=== PATIENT | male | born 1950 | race African-American/Black ===

== ENCOUNTER → 2020-06-28 13:52 | Outpatient (CLI) | payer MEDICARE, SELFPAY ==
--- NOTE | ~2020-06-28 | CT_ITS ---
EXAMINATION: CT lumbar spine wo con DATE: 06/28/2020 14:23 INDICATION: Lumbosacral radiculopathy. Right leg weakness. TECHNIQUE: Computed tomography (CT) of the lumbar spine was performed without intravenous contrast. A utomated exposure control and iterative reconstruction technique were employed. The dose-length produ ct was 930.57 mGy-cm. COMPARISON: CT lumbar spine 09/19/2019 FINDINGS: There is 8 degrees levocurvature of lumbar spine. There is 3 mm retrolisthesis of L4 on L5. Vertebral body heights are normal. There is severely decreased disc height from L2-L3 through L4-L5. Osseous central spinal canal is developmentally small from L1 to L4. Epidural electrodes are noted w ith tips in thoracic spine. The following disc levels are specifically discussed: L1-L2: The disc is bulging. There is mild bilateral facet joint osteoarthritis. There is mild bilater al neural foraminal stenosis. There is mild central canal stenosis. L2-L3: The disc is bulging. There is severe bilateral facet joint osteoarthritis. There is moderate b ilateral neural foraminal stenosis. There is moderate central canal stenosis. L3-L4: The disc is bulging. There is mild bilateral facet joint osteoarthritis. There is moderate dakota ateral neural foraminal stenosis. There is severe central canal stenosis. L4-L5: The disc is bulging. There is moderate and severe left facet joint osteoarthritis. There is mo derate bilateral neural foraminal stenosis. There is moderate central canal stenosis. L5-S1: The disc is bulging. There is severe bilateral facet joint osteoarthritis. There is moderate b ilateral neural foraminal stenosis. There is mild central canal stenosis. IMPRESSION: 1. Severe lumbar spondylosis, stable from 09/19/2019. Reviewed, dictated and finalized at location B.
== END ==
PROVIDERS: PCP Family Medicine; Visit Provider Nurse Practitioner Adult Health
DX: M54.17 Radiculopathy, lumbosacral region (principal); M47.816 Spondylosis without myelopathy or radiculopathy, lumbar region
CPT/HCPCS: 72131

== ENCOUNTER 2020-11-05 10:49 | Outpatient (NON) | payer MEDICARE, SELFPAY ==
[2020-11-05 22:00] LABS: SARS-CoV-2 RNA PCR Negative
== END 2020-11-05 10:50 ==
PROVIDERS: Visit Provider Physician Assistant
DX: R68.89 Other general symptoms and signs (principal); Z20.828 Contact with and (suspected) exposure to other viral communicable diseases
CPT/HCPCS: 87635; C9803; U0003

== ENCOUNTER → 2021-01-05 06:46 | Outpatient (CLI) | payer MEDICARE, SELFPAY ==
[2021-01-05 19:10] LABS: SARS-CoV-2 RNA PCR Negative
== END ==
PROVIDERS: Visit Provider Internal Medicine Cardiovascular Disease
DX: Z01.812 Encounter for preprocedural laboratory examination (principal); Z20.822 Contact with and (suspected) exposure to COVID-19
CPT/HCPCS: C9803; U0003; U0005

== ENCOUNTER 2021-01-08 00:28 | Day surgery (SDC) | payer MEDICARE, SELFPAY ==
[2021-01-07 14:20] VITALS: O2SAT 97
[2021-01-07 17:01] VITALS: BMI 42.3
[2021-01-08] VITALS (21 sets, daily range): BP systolic 115–158; BP diastolic 62–98; PULSE 53–93; RESP 14–20; TEMP 36.2–36.5; O2SAT 96–100; BMI 41.5
[2021-01-08 08:29] LABS: Basophils Percent Auto 0.3 % (0.2-1.2); Hematocrit 44.2 % (42.0-52.0); Hemoglobin 14.4 g/dL (14.0-18.0); Immature Granulocyte Absolute 0.04 K/mm3 (0.00-0.031); Immature Granulocyte Percent A 0.5 % (0-0.5); Lymphocytes Absolute Auto 1.62 K/mm3 (0.9-3.2); Lymphocytes Percent Auto 20.6 % (18.3-44.2); Mean Corpuscular HGB Conc 32.6 g/dl (32-36); Mean Corpuscular Hemoglobin 29.6 pg (26-34); Mean Corpuscular Volume 90.9 fl (80-100); Mean Platelet Volume 10.7 fl (7.4-10.4); Monocytes Absolute Auto 0.1 K/mm3 (0.1-0.6); Monocytes Percent Auto 1.4 % (2.6-8.5); Neutrophils Absolute Auto 6.1 K/mm3 (1.3-6.7); Neutrophils Percent Auto 77.2 % (45.5-73.1); Platelet Count Result 339 k/mm3 (150-375); Red Blood Count 4.86 M/mm3 (4.6-6.20); Red Cell Distribution Width 13.8 % (11.5-14.5); White Blood Count 7.9 K/mm3 (4.5-10.0)
[2021-01-08 08:39] LABS: INR 0.9; Prothrombin Time 13.1 Seconds (11.1-14.7)
[2021-01-08 08:50] LABS: Alanine Aminotransferase 35 U/L (4-50); Albumin Level 4.4 g/dL (3.5-5.1); Alkaline Phosphatase 57 U/L (38-126); Anion Gap 10 mmol/L (8-16); Aspartate Amino Transferase 33 U/L (17-59); Bilirubin,Total 0.6 mg/dL (0.2-1.3); Blood Urea Nitrogen 29 mg/dL (9-20); Calcium 9.2 mg/dL (8.4-10.2); Carbon Dioxide 27 mmol/L (22-30); Chloride 105 mmol/L (98-107); Estimated CRCL calculation 90 ml/min; Estimated Glomerular Filt Rate > 60; Glucose 150 mg/dL (75-110); Potassium 3.9 mmol/L (3.4-5.0); Sodium 142 mmol/L (137-145)
[2021-01-08] MEDS: diphenhydrAMINE HCl CAP 25 MG CAPSULE 50 MG PO (12:48)
--- NOTE | 2021-01-08 13:23 | WPDMODSED ---
Moderate Sedation Note-Pt Data Patient Data Allergies Allergy/AdvReac Type Severity Reaction Status Date / Time Contrast Media Allergy Unknown HIVES AND Uncoded 01/07/21 16:58 ITCHING Home Medications Medication Instructions Recorded Confirmed Type aspirin 81 mg tablet,delayed 81 mg PO DAILY 08/01/20 01/07/21 History release furosemide 40 mg tablet 40 mg PO QAM 08/01/20 01/07/21 History potassium chloride 20 mEq 20 meq PO DAILY 08/01/20 01/07/21 History tablet,extended release tadalafil 20 mg tablet 20 mg PO DAILY PRN #30 tablet 08/01/20 01/07/21 Rx lisinopril 20 2 tablet PO DAILY #180 tablet 09/04/20 01/07/21 Rx mg-hydrochlorothiazide 25 mg tablet metoprolol succinate 25 mg 25 mg PO DAILY #90 tablet 12/11/20 01/07/21 Rx tablet,extended release 24 hr rosuvastatin [Crestor] 20 mg PO DAILY 01/07/21 01/07/21 History Current Medications: Active Medications Sodium Chloride (Normal Saline Iv) 500 mls @ 100 mls/hr IV CONT .Q5H FOZIA Sedation/Anesthesia: No previous sedation/anesthesia problems (including family history). [facility] Past Medical History Medical History (Updated 10/22/20 @ 12:10 by Mathieu Woo PA-C) 70 percent neuromuscular blockade measured by train of four peripheral nerve stimulation monitoring Hypertension Surgical History Surgical History History of arthroscopic knee surgery History of total hip arthroplasty Family History Family History Father Family history of malignant neoplasm Mother Hypertension Sibling Hypertension Grandparent Malignant neoplasm of prostate Sibling Malignant neoplasm of prostate Social History Social History Smoking status: Former smoker Tobacco type: e-cigarettes/vaping Smokeless tobacco user: other Second hand tobacco smoke exposure: No Smoking end date: 04/16/19 Additional smoking assessment comments: Pt uses e-cig daily Alcohol intake: current Drinks per week: 1 Substance use: never Substance use type: other Other substance usage details: CBD oil BID Living arrangements: with friend(s) Gender identity (if verbalized by the patient): Male Spiritual care concerns: Yes Agree to blood products: Yes Mod Sed Physical Exam Physical Exam Pre Procedural Exam: Normal: Airway Hours since solid foods: 12 Hours since liquid intake: 12 Internal Medicine - PN: Obj Da Vital Signs Vital Signs: Vital Signs - 24 hr 01/08/21 08:29 Temperature 36.2 C L Pulse Rate 93 Respiratory Rate 20 Blood Pressure 158/80 H Pulse Oximetry 97 Meds/Results Medications: Active Medications Generic Name Dose Route Start Last Admin Trade Name Freq PRN Reason Stop Dose Admin Sodium Chloride 500 mls @ 100 mls/hr 01/08/21 08:15 Normal Saline Iv IV CONT .Q5H FOZIA Labs CBC & Chem 7: 01/08/21 08:23 01/08/21 08:23 Labs: Laboratory Results - last 24 hr 01/08/21 01/08/21 01/08/21 08:23 08:23 08:23 WBC 7.9 RBC 4.86 Hgb 14.4 Hct 44.2 MCV 90.9 MCH 29.6 MCHC 32.6 RDW 13.8 Plt Count 339 MPV 10.7 H Immature Gran % (Auto) 0.5 Neut % (Auto) 77.2 H Lymph % (Auto) 20.6 [place] % (Auto) 1.4 L Eos % (Auto) 0.0 Baso % (Auto) 0.3 Lymph # (Auto) 1.62 [place] # (Auto) 0.1 Eos # (Auto) 0.0 Baso # (Auto) 0.0 Abs Immat Gran (auto) 0.04 H Absolute Neuts (auto) 6.1 Absolute Nucleated RBC 0.0 Nucleated RBC % 0.0 PT 13.1 INR 0.9 Sodium 142 Potassium 3.9 Chloride 105 Carbon Dioxide 27 Anion Gap 10 BUN 29 H Creatinine 0.90 Estim Creat Clear Calc 90 Estimated GFR > 60 Glucose 150 H Calcium 9.2 Total Bilirubin 0.6 AST 33 ALT 35 Alkaline Phosphatase 57 Total Protein 8.0 Albumin 4.4 ASA C
--- NOTE | 2021-01-08 13:24 | WPDHPUPDATE1 ---
History and Physical Update Update Date/Time: 01/08/21 13:24 History and Physical has been reviewed, including an updated exam of the patient. There are NO changes in the patient's condition. Risks, benefits, and alternatives have been discussed and questions answered. Patient agrees to proceed with procedure.
--- NOTE | 2021-01-08 14:03 | WPDCARDPROC ---
Cardiac Cath Procedure Note Date of procedure:: 01/08/21 Performing physician:: Noman Garg MD Procedure Procedure note:: RIGHT AND LEFT HEART CATHETERIZATION AND CORONARY ANGIOGRAM REPORT DATE OF PROCEDURE: 01/08/2021 INDICATION FOR PROCEDURE: Chest pain and worsening shortness of breath BRIEF CLINICAL HISTORY: 70-year-old male with hypertension, CHF with preserved ejection fraction based on previous echo, pulmonary hypertension, PVCs, morbid obesity. Patient has been experiencing worsening shortness of breath and episodes of chest discomfort. His previous MPI from 06/21/2019 reportedly showed mild fixed defect in the basal anterior, mid anterior and apical anterior segments; normal LVEF. Due to patient's symptoms of chest discomfort and worsening shortness of breath, right heart catheterization and coronary angiogram was recommended. Benefits and risks of the procedure were discussed with the patient in depth, and informed consent was obtained prior to the procedure. Risks of the procedure include but are not limited to vascular complications including groin hematoma, retroperitoneal bleed, vessel perforation; periprocedural GA, cardiac arrhythmias, stroke, contrast induced nephropathy, cardiac arrhythmias, pulmonary hemorrhage and . After discussing all the benefits, risks and alternatives, patient was willing to proceed with the procedure. PROCEDURES PERFORMED: 1. Left heart catheterization- Selective left and right coronary angiogram; left ventriculogram and hemodynamic assessment 2. Right heart catheterization with hemodynamic assessment 3. Selective right common femoral angiogram and deployment of Angio-Seal hemostatic device 4. Moderate sedation-CPT code 89161 MODERATE SEDATION: Midazolam 2 mg; fentanyl 50 mcg; Start time 1328 , Stop time 1402 ; Total ypax-al-cyst time 34 minutes; Belinda Fernandez RN was trained observer for moderate sedation. ACCESS SITE: Right common femoral artery and vein PROCEDURE NOTE: After obtaining informed consent, patient was brought to catheterization lab and prepped and draped in a usual sterile manner. After local anesthesia with lidocaine, right common femoral artery access was taken with micropuncture needle followed by insertion of a 5 [place] sheath. Right common femoral venous access was taken with micropuncture needle followed by insertion of a 7 [place] sheath. Right heart catheterization was performed using C [place] catheter. Pressures were measured in the right atrium, right ventricle, pulmonary artery, pulmonary capillary. O2 saturations were taken from the femoral artery, right atrium, right ventricle, pulmonary artery. Cardiac output was measured using Jayden's method. After completion of right heart catheterization, attention was shifted to the left heart catheterization. Selective left and right coronary angiogram was performed using 5 [place] JL4 and JR4 catheters respectively. Orthogonal views were taken. Next, a 5 [place] pigtail catheter was advanced in the LV cavity and was flushed with normal saline. LV pressure measurement was performed. After this, left ventriculogram was performed. The catheter was flushed again, and gradient across the aortic valve was measured on the pullback of the catheter. Manual pressure will be used for local hemostasis of right femoral and venous access site. Patient tolerated procedure well without any immediate procedure related complications. FINDINGS: LEFT HEART CATHETERIZATION: LEFT MAIN CORONARY: the left main coronary artery is the medium caliber vessel with mild narrowing in the distal segment. The vessel trifurcates into LAD, ramus intermedius and left circumflex branches. The LAD and left circumflex branches arise at almost 90 degree angles from the left main coronary artery. LEFT ANTERIOR DESCENDING ARTERY: The LAD is a medium caliber vessel in the proximal segment; very tortuous in the mid and distal segments, and tapers dis
--- NOTE | 2021-01-08 17:14 | SUR.PHASEII ---
Right groin arterial and venous site without any signs of bleeding or hematoma. Drsg dry and intact to site. HOB levated to 30 degrees. Tolerated regular diet without nausea or vomiting. IVF infusing at 125ml/hr. Post cardiac cath instructions reviewed with patient and with stated understanding - reinforced information as needed. Voided per urinal.
== END 2021-01-08 22:30 | disposition home or self-care (01) ==
PROVIDERS: Visit Provider Internal Medicine Cardiovascular Disease
PROC: 4A023N8 Measurement of Cardiac Sampling and Pressure, Bilateral, Percutaneous Approach (ICD-10-PCS; CPT 93453; principal; 2021-01-08 10:00)
DX: I25.10 Atherosclerotic heart disease of native coronary artery without angina pectoris (principal); R07.9 Chest pain, unspecified; R06.02 Shortness of breath; I11.0 Hypertensive heart disease with heart failure; I50.9 Heart failure, unspecified; I27.20 Pulmonary hypertension, unspecified; I49.3 Ventricular premature depolarization; R94.39 Abnormal result of other cardiovascular function study; Z79.82 Long term (current) use of aspirin; F17.290 Nicotine dependence, other tobacco product, uncomplicated; E66.01 Morbid (severe) obesity due to excess calories; Z68.41 Body mass index [BMI] 40.0-44.9, adult
CPT/HCPCS: 36415; 80053; 85025; 85610; 93460; A9270; C1769; C1887; C1894; C9803; J0583; J1644; J2250; J3010; J7030; J7040; U0003; U0005

== ENCOUNTER 2021-02-06 20:44 | Emergency (ER) | payer MEDICARE, SELFPAY ==
--- NOTE | ~2021-02-06 | XR_ITS ---
EXAMINATION: XR chest 1V portable EXAM DATE: 02/06/2021 22:02 INDICATION: Shortness of breath. COVID shot recently. Triple bypass surgery. Hypertension. TECHNIQUE: Portable AP frontal chest x-ray was obtained. Comparison is made to prior examination from 09/22/2019. FINDINGS: There is cardiomegaly. There is small left pleural effusion. There is left basilar linear a telectasis. Can't exclude superimposed left basilar pneumonia. Right lung is clear. No pneumothorax. Sternotomy wires and spine stimulator leads. IMPRESSION: 1. Cardiomegaly. 2. Small to moderate left pleural effusion. Left basilar subsegmental atelectasis. 3. Can't exclude superimposed retrocardiac pneumonia. Reviewed, dictated and finalized at location G. IMPRESSION: 1. Cardiomegaly. 2. Small to moderate left pleural effusion. Left basilar subsegmental atelecta sis. 3. Can't exclude superimposed retrocardiac pneumonia.
[2021-02-06 20:47] VITALS: BP 204/108; PULSE 84; RESP 22; TEMP 36.1; O2SAT 97
--- NOTE | 2021-02-06 20:55 | ECG_ITS ---
Measurements Intervals [place] Rate: 79 P: 61 [place]: 158 QRS: 44 QRSD: 110 T: 123 QT: 374 QTc: 430 Interpretive Statements SINUS RHYTHM WITH SINUS ARRHYTHMIA VENTRICULAR PREMATURE COMPLEXES BORDERLINE ST-T WAVE ABNORMALITY- INF/LAT LEADS BASELINE WANDER- I, II, III, AVL, AVF, V3-V6 BORDERLINE ECG Electronically Signed On 02-07-2021 7:32:04 CDT by Omer Dubose D.O.
[2021-02-06 21:09] LABS: Basophils Absolute Auto 0.1 K/mm3 (0.0-0.1); Basophils Percent Auto 0.8 % (0.2-1.2); Eosinophils Absolute Auto 0.2 K/mm3 (0-0.3); Eosinophils Percent Auto 2.3 % (0-4.4); Hematocrit 35.3 % (42.0-52.0); Hemoglobin 11.1 g/dL (14.0-18.0); Immature Granulocyte Absolute 0.04 K/mm3 (0.00-0.031); Immature Granulocyte Percent A 0.5 % (0-0.5); Lymphocytes Absolute Auto 2.57 K/mm3 (0.9-3.2); Lymphocytes Percent Auto 29.3 % (18.3-44.2); Mean Corpuscular HGB Conc 31.4 g/dl (32-36); Mean Corpuscular Hemoglobin 28.6 pg (26-34); Mean Platelet Volume 10.1 fl (7.4-10.4); Monocytes Absolute Auto 0.7 K/mm3 (0.1-0.6); Monocytes Percent Auto 8.3 % (2.6-8.5); Neutrophils Absolute Auto 5.2 K/mm3 (1.3-6.7); Neutrophils Percent Auto 58.8 % (45.5-73.1); Platelet Count Result 482 k/mm3 (150-375); Red Blood Count 3.88 M/mm3 (4.6-6.20); Red Cell Distribution Width 14.9 % (11.5-14.5); White Blood Count 8.8 K/mm3 (4.5-10.0)
[2021-02-06 21:46] LABS: Anion Gap 8 mmol/L (8-16); Blood Urea Nitrogen 17 mg/dL (9-20); Calcium 8.9 mg/dL (8.4-10.2); Carbon Dioxide 25 mmol/L (22-30); Chloride 108 mmol/L (98-107); Estimated CRCL calculation 89 ml/min; Estimated Glomerular Filt Rate > 60; Glucose 124 mg/dL (75-110); Potassium 3.7 mmol/L (3.4-5.0); Sodium 141 mmol/L (137-145)
--- NOTE | 2021-02-06 21:58 | ED.GENADULT ---
HPI - General Adult General Chief complaint: Dizziness Stated complaint: dizziness, sob, 2nd covid shot today Time Seen by Provider: 02/06/21 21:29 History of Present Illness HPI narrative: Patient is a 70-year-old gentleman who presents to the emergency department with chief complaint of shortness of breath. The patient reports that he recently had a bypass done at [facility] and has been doing well with that. Patient states his wounds are healing nicely and is still followed by home health. The patient reported that today he got his second Covid vaccine at approximately 2 PM and this evening started having some feelings of shortness of breath and feeling generalized weakness Related Data Home Medications Medication Instructions Recorded Confirmed aspirin 81 mg tablet,delayed 81 mg PO DAILY 08/01/20 01/07/21 release furosemide 40 mg tablet 40 mg PO QAM 08/01/20 01/07/21 potassium chloride 20 mEq 20 meq PO DAILY 08/01/20 01/07/21 tablet,extended release rosuvastatin [Crestor] 20 mg PO DAILY 01/07/21 01/07/21 Allergies Allergy/AdvReac Type Severity Reaction Status Date / Time Contrast Media Allergy Unknown HIVES AND Uncoded 02/06/21 20:52 ITCHING Review of Systems Review of Systems: Narrative: A 10 system review of systems was completed on the patient and is negative except for what is stated in the HPI. Nursing and ancillary documentation was reviewed. [facility] Past Medical History Medical History (Updated 02/06/21 @ 23:55 by Jan Coy MD) 70 percent neuromuscular blockade measured by train of four peripheral nerve stimulation monitoring Hypertension Surgical History Surgical History History of arthroscopic knee surgery History of total hip arthroplasty Family History Family History Father Family history of malignant neoplasm Mother Hypertension Sibling Hypertension Grandparent Malignant neoplasm of prostate Sibling Malignant neoplasm of prostate Social History Social History Smoking status: Former smoker Tobacco type: e-cigarettes/vaping Smokeless tobacco user: other Second hand tobacco smoke exposure: No Smoking end date: 04/16/19 Additional smoking assessment comments: Pt uses e-cig daily Alcohol intake: current Drinks per week: 1 Substance use: never Substance use type: other Other substance usage details: CBD oil BID Gender identity (if verbalized by the patient): Male Sexual Orientation (if Verbalized by the Patient): Straight or Heterosexual Spiritual care concerns: Yes Agree to blood products: Yes Exam Narrative: Exam Narrative: GENERAL: Well-appearing, well-nourished, and in no acute distress. HEAD: Normocephalic, atraumatic. EYES: PERRLA and EOMI. ENT: Nares clear, no rhinorrhea or epistaxis. Mucous membranes moist. NECK: Supple. CHEST: Clear to auscultation. No respiratory distress. HEART: Regular rate and rhythm. No murmur heard. Normal peripheral pulses. ABDOMEN: Soft, nontender, nondistended, normal active bowel sounds. EXTREMITIES: Normal range of motion. No edema. SKIN: Warm, dry, no rash. NEURO: No focal deficits. Alert and oriented x3. PSYCH: Normal mood and affect. Course Vital Signs Vital signs: Vital Signs Temperature 36.1 C L 02/06/21 20:47 Pulse Rate 84 02/06/21 20:47 Respiratory Rate 22 H 02/06/21 20:47 Blood Pressure 204/108 H 02/06/21 20:47 Pulse Oximetry 97 02/06/21 20:47 Temperature 36.1 C L 02/06/21 20:47 Pulse Rate 84 02/06/21 20:47 Respiratory Rate 22 H 02/06/21 20:47 Blood Pressure 204/108 H 02/06/21 20:47 Pulse Oximetry 97 02/06/21 20:47 Medical Decision Making Vital Signs Vital Signs: Vital Signs Temperature 36.1 C L 02/06/21 20:47 Pulse Rate 84
[2021-02-06 22:17] LABS: NT Pro B Type Natriuretic Pept 525 PG/ML (5-100); Troponin I 0.019 ng/mL (0.000-0.034)
[2021-02-07 00:14] VITALS: BP 158/92; PULSE 71; RESP 20; TEMP 36.3; O2SAT 97
== END 2021-02-07 00:14 | disposition home or self-care (01) ==
PROVIDERS: Emergency Medicine; Emergency Provider Emergency Medicine
DX: R06.00 Dyspnea, unspecified (principal); R53.1 Weakness; I10 Essential (primary) hypertension; Z96.649 Presence of unspecified artificial hip joint; F17.290 Nicotine dependence, other tobacco product, uncomplicated; I49.3 Ventricular premature depolarization; R94.31 Abnormal electrocardiogram [ECG] [EKG]
CPT/HCPCS: 36415; 71045; 80048; 83880; 84484; 85025; 93005; 99284

== ENCOUNTER 2021-03-21 09:42 | Outpatient (CLI) | payer MEDICARE, SELFPAY ==
--- NOTE | ~2021-03-21 | XR_ITS ---
EXAMINATION: XR foot LT min 3V EXAM DATE: 03/21/2021 10:05 INDICATION: No known recent injury provided at this time. Pain of the left foot. TECHNIQUE: Left foot dorsoplantar, lateral and oblique projections obtained and reviewed. There is n o prior study for comparison. FINDINGS: Left metatarsal bones unremarkable. There are no acute fractures or dislocations identifi ed. There is no subcutaneous gas. There is soft tissue swelling over the foot and ankle. There are no radiopaque foreign bodies. There is mild polyarticular primary osteoarthritis. Small inferior ca lcaneal spur. Possible exostosis dorsally of the 1st cuneiform. IMPRESSION: 1. Left foot exam without acute osseous findings. 2. Possible fractures of exostosis dorsally. 3. Diffuse soft tissue swelling. Reviewed, dictated and finalized at location B.
== END 2021-03-21 09:43 | disposition home or self-care (01) ==
PROVIDERS: PCP Physician Assistant; Visit Provider Physician Assistant
DX: M25.474 Effusion, right foot (principal); M79.672 Pain in left foot
CPT/HCPCS: 73630

== ENCOUNTER 2021-04-01 12:54 | Outpatient (CLI) | payer MEDICARE, SELFPAY ==
--- NOTE | ~2021-04-01 | US_ITS ---
EXAMINATION: US arterial ankle brachial ind EXAM DATE: 04/01/2021 13:55 INDICATION: M79.672 - Pain in left foot left foot pain . TECHNIQUE: Segmental pressures and plethysmographic and Doppler waveforms of the brachial and lower e xtremity arteries were obtained. There is no prior study for comparison. FINDINGS: Right and left brachial artery pressures of 142 mm Hg and 127 mm Hg, respectively, are concordant (no rmal difference <= 30 mmHg). RIGHT LEG: The ankle-brachial index (ANDREZ) is 0.99 (normal >= 0.9-1). The great toe-brachial index (TBI) is 0.08 (normal >= 0.65). The lower extremity ratios, segmental pressure gradients as follows; Dorsalis pedis: 0.99 (140 mmHg). Posterior tibial: 0.88 (125 mmHg). (Normal gradients <= 20-30 mmHg between adjacent levels on the same leg or the same levels on the two legs). Arterial waveforms are monophasic. LEFT LEG: The ankle-brachial index (ANDREZ) is 0.94 (normal >= 0.9-1). The great toe-brachial index (TBI) is 0.38 (normal >= 0.65). The lower extremity ratios, segmental pressure gradients as follows; Dorsalis pedis: 0.94 (133 mmHg). Posterior tibial: 0.92 (131 mmHg). (Normal gradients <= 20-30 mmHg between adjacent levels on the same leg or the same levels on the two legs). Arterial waveforms are monophasic. IMPRESSION: 1. Right ankle-brachial index 0.99, normal. 2. Left ankle-brachial index 0.94, normal. 3. Severely decreased right TBI, moderately decreased left. Reviewed, dictated and finalized at location A.
--- NOTE | ~2021-04-01 | US_ITS ---
EXAMINATION: US venous doppler [facility] EXAM DATE: 04/01/2021 13:55 INDICATION: M79.672 - Pain in left foot left foot pain. TECHNIQUE: Multiple grayscale, color flow and Doppler images of the left lower extremity deep venous system were obtained and reviewed. There is no prior study for comparison. FINDINGS: The left common femoral, femoral and profunda veins demonstrate normal color flow, respirat ory variation, augmentation and compressibility. Compressibility, color flow confirmed within the le ft popliteal, posterior tibial, peroneal, and greater saphenous veins. IMPRESSION: 1. No left lower extremity deep venous thrombosis. Reviewed, dictated and finalized at location A.
== END 2021-04-01 12:55 | disposition home or self-care (01) ==
PROVIDERS: PCP Physician Assistant; Visit Provider Physician Assistant
DX: R09.89 Other specified symptoms and signs involving the circulatory and respiratory systems (principal); M79.672 Pain in left foot
CPT/HCPCS: 93922; 93971

== ENCOUNTER 2021-04-29 07:15 | Outpatient (CLI) | payer MEDICARE, SELFPAY ==
--- NOTE | 2021-05-13 11:30 | WPDHOMESLEEP ---
Sleep Study - Home Unattended Date of Study: 04/29/21 Ordering Provider: Noman Garg MD Interpreting Provider: Bonny Beebe MD Home Sleep Study Type: Apnea Link Air Height: 1.75 m Weight: 122.47 kg Body Mass Index: 39.9 Neck Circumference (inches): 17.5 [place]: 6 Reason for Sleep Study hypersomnia Sleep History Deandre Lebron is a 71-year-old male referred by Dr. Garg, cardologist, for evaluation of his sleep. He wakes several times at night to urinate. He rarely awakens from sleep feeling short of breath. He does not awaken at night with heartburn, belching or coughing. He constantly snores and this is constantly loud enough that others complain about it. He occasionally has trouble sleeping with a cold. He rarely wakes up gasping for breath at night. He rarely has breathing problems at night observed by others. He rarely sweats excessively at night. He does not notice his heart pounding or beating irregularly night. He occasionally falls asleep during the day, occasionally falls asleep involuntarily but says that he never falls asleep while driving. He does not have loss of muscle tone was strong emotion. He does not have daytime difficulties due to excessive sleepiness. He does not feel paralyzed on waking or falling asleep. He does not have vivid dreamlike scenes upon awakening or falling asleep. He does not feel afraid to go to sleep. He rarely has nightmares and rarely remembers his dreams. He does not have racing thoughts. He does not feel sad depressed or anxious. He denies muscular tension, does not notice parts of his body jerking. He does not kick at night. He does not have crawling and aching feelings in his legs. He does not have any kind of leg pain at night. He does not have morning jaw pain. He does not grind his teeth during sleep. He frequently is bothered by pain during the day. He has never awakened by pain during the night. He rarely wakes up feeling stiff, rarely wakes with sore achy muscles, and rarely wakes with pain in the neck and spine. He has sexual difficulties. Normal bedtime is 11:00 p.m. falling asleep within 15-20 minutes. He typically wakes 2-3 times at night to use the bathroom. He stays awake for averaged 30 minutes. He wakes the morning by 6:00 a.m.. On the weekends he goes to bed at 11:00 p.m. but wakes at 8:00 a.m.. He does take naps in the afternoon or evening. A short nap is not refreshing. He feels better in the afternoon compared other times a day. Habits: Quit tobacco 4 years ago. Caffeine 2 glasses a day. Alcohol twice a week. No recreational drugs. [facility] Past Medical History Medical History (Updated 05/13/21 @ 11:39 by Bonny Beebe MD) Absence of pulse of left foot CAD in [place] artery Chronic toe pain, left foot Hypertension Lumbosacral spondylosis with radiculopathy Mixed hyperlipidemia Surgical History Surgical History History of arthroscopic knee surgery History of total hip arthroplasty S/P CABG x 3 Family History Family History Father Family history of malignant neoplasm Mother Hypertension Diabetes mellitus Sibling Hypertension Grandparent Malignant neoplasm of prostate Sibling Malignant neoplasm of prostate Social History Social History Smoking status: Former smoker Tobacco type: e-cigarettes/vaping Smokeless tobacco user: other Second hand tobacco smoke exposure: No Smoking end date: 04/16/19 Additional smoking assessment comments: Pt uses e-cig daily Alcohol intake: current Drinks per week: 1 Substance use: never Substance use type: other Other substance usage details: CBD oil BID Gender identity (if verbalized by the patient): Male Spiritual care concerns: Yes Agree to blood products: Yes Medications Home Medications
[2021-05-13 11:43] VITALS: BMI 39.9
== END 2021-04-30 09:22 | disposition home or self-care (01) ==
LOC: ANHCSM 07:15
PROVIDERS: PCP Physician Assistant; Visit Provider Internal Medicine Cardiovascular Disease
DX: G47.33 Obstructive sleep apnea (adult) (pediatric) (principal); G47.10 Hypersomnia, unspecified; Z68.39 Body mass index [BMI] 39.0-39.9, adult
CPT/HCPCS: 95806

== ENCOUNTER 2021-05-06 09:19 | Emergency (ER) | payer MEDICARE, SELFPAY ==
--- NOTE | ~2021-05-06 | XR_ITS ---
EXAMINATION: XR knee LT 3V DATE: 05/06/2021 10:00 INDICATION: Left knee pain TECHNIQUE: Three views of the left knee were obtained. COMPARISON: None. FINDINGS: Alignment is normal. No fracture or osteochondral lesion. There is tricompartmental osteoar thritis, moderate in the patellofemoral and medial compartments. A moderate size joint effusion is pr esent. Calcified atherosclerosis is noted. There is soft tissue swelling surrounding the knee. IMPRESSION: 1. Moderate-sized joint effusion and moderate osteoarthritis without acute osseous abnormality. Reviewed, dictated and finalized at location A. IMPRESSION: 1. Moderate-sized joint effusion and moderate osteoarthritis without acute osse ous abnormality.
[2021-05-06 09:44] VITALS: BP 166/87; PULSE 71; RESP 16; TEMP 36.2; O2SAT 98
--- NOTE | 2021-05-06 11:32 | ED.FALL ---
HPI - Fall General Chief Complaint: Fall Stated Complaint: fall, left knee injury Time Seen by Provider: 05/06/21 11:09 Source: patient Mode of arrival: wheelchair Limitations: no limitations History of Present Illness HPI Narrative: This is a 71-year-old male that presents to the emergency department for left knee pain after an injury yesterday. Reports he was walking up steps and slipped. Reports landing on the left knee. Reports since he has had swelling and pain in the knee. Reports decreased range of motion due to pain. Denies hitting his head, loss of consciousness, other injuries, or numbness. Related Data Home Medications Medication Instructions Recorded Confirmed aspirin 81 mg tablet,delayed 81 mg PO DAILY 08/01/20 04/08/21 release lisinopril 20 mg tablet 20 mg PO DAILY 03/06/21 04/08/21 potassium chloride 20 mEq 20 meq PO .QOD tablet 03/06/21 04/08/21 tablet,extended release rosuvastatin 40 mg tablet 40 mg PO DAILY 03/06/21 04/08/21 clopidogrel DAILY 05/06/21 furosemide See Rx Instructions .ROUTE .COMPLEX 05/06/21 tamsulosin mg PO 05/06/21 Allergies Allergy/AdvReac Type Severity Reaction Status Date / Time Contrast Media Allergy Unknown HIVES AND Uncoded 05/06/21 11:02 ITCHING Review of Systems Review of Systems: Narrative: CONSTITUTIONAL: Denies fever MUSCULOSKELETAL: Reports joint pain, and myalgia. NEUROLOGIC: Denies numbness All systems reviewed & are unremarkable except as noted in HPI and below PMFSH Past Medical History Medical History (Updated 05/06/21 @ 11:36 by Amna De La Paz PA-C) Hypertension Mixed hyperlipidemia Surgical History Surgical History (Updated 05/06/21 @ 11:34 by Amna De La Paz PA-C) History of arthroscopic knee surgery History of total hip arthroplasty S/P CABG x 3 Family History Family History Father Family history of malignant neoplasm Mother Hypertension Diabetes mellitus Sibling Hypertension Grandparent Malignant neoplasm of prostate Sibling Malignant neoplasm of prostate Social History Social History Smoking status: Former smoker Tobacco type: e-cigarettes/vaping Smokeless tobacco user: other Second hand tobacco smoke exposure: No Smoking end date: 04/16/19 Additional smoking assessment comments: Pt uses e-cig daily Alcohol intake: current Drinks per week: 1 Substance use: never Substance use type: other Other substance usage details: CBD oil BID Gender identity (if verbalized by the patient): Male Spiritual care concerns: Yes Agree to blood products: Yes Exam Narrative: Exam Narrative: GENERAL: Well-appearing, well-nourished, and in no acute distress. HEAD: Normocephalic, atraumatic. EYES: EOMI. EXTREMITIES: Normal range of motion. No edema, erythema or obvious deformity. Normal sensation. Mildly diminished DP pulses bilaterally SKIN: Warm, dry, no rash. NEURO: No focal deficits. Alert and oriented x3. PSYCH: Normal mood and affect Course Vital Signs Vital signs: Vital Signs Temperature 97.2 F L 05/06/21 09:44 Pulse Rate 71 05/06/21 09:44 Respiratory Rate 16 05/06/21 09:44 Blood Pressure 166/87 H 05/06/21 09:44 Pulse Oximetry 98 05/06/21 09:44 Temperature 97.2 F L 05/06/21 09:44 Pulse Rate 71 05/06/21 09:44 Respiratory Rate 16 05/06/21 09:44 Blood Pressure 166/87 H 05/06/21 09:44 Pulse Oximetry 98 05/06/21 09:44 MDM - Fall MDM Narrative Medical decision making narrative: Patient presents to the emergency department for left knee pain after an injury yesterday. Left knee x-ray shows a moderate sized joint effusion without acute osseous abnormality. Patient placed in Sim wrap and instructed to use his walker. He was instructed on care of the sprain. He is to follow-up with orthopedics. He was given warnings to return to the ER Imagi
== END 2021-05-06 11:55 | disposition home or self-care (01) ==
LOC: ANHED 11:40
PROVIDERS: Emergency Provider Emergency Medicine; PCP Physician Assistant
DX: S83.92XA Sprain of unspecified site of left knee, initial encounter (principal); I10 Essential (primary) hypertension; E78.2 Mixed hyperlipidemia; I25.10 Atherosclerotic heart disease of native coronary artery without angina pectoris; Z96.649 Presence of unspecified artificial hip joint; Z95.1 Presence of aortocoronary bypass graft; F17.290 Nicotine dependence, other tobacco product, uncomplicated; Z79.82 Long term (current) use of aspirin; M17.12 Unilateral primary osteoarthritis, left knee; W10.9XXA Fall (on) (from) unspecified stairs and steps, initial encounter
CPT/HCPCS: 73562; 99283

== ENCOUNTER 2021-07-01 09:45 | Outpatient (RCR) | payer MEDICARE, SELFPAY ==
[2021-03-15 09:01] VITALS: PULSE 56
--- NOTE | 2021-03-15 09:04 | PCCPR ---
Pain in low back and sciatic pain Deandre has a h/o of pain to low back and and sciatic pain. Through pain pain management he has had some nerves in his back cauterized and a pain pump to his sciatic area which he has not activated since his bypass surgery. He was formerly on NSAIDS for pain control however unable to take since this recent CABG. He states the tylenol recommended is not helping. Encouraged him to contact his PCP and possibly pain management for further instruction. He also has a sore left great toe his MD's thought may have been gout however was not. They are planning an x ray soon to further investigate.
[2021-03-15 09:39] VITALS: PULSE 56
--- NOTE | 2021-05-06 08:09 | PCCPR ---
Addendum entered by Jelly Humphrye RN 05/13/21 17:04: Spoke with Deandre states his leg is still painful. He went to the ED and was x-rayed and nothing was broken however he does not feel right now he could walk or use the nustep. He has left a [facility] [place] for his MD without a return call. States he will call them back tomorrow for instructions. Asked he keep us updated and if he will be able to return. Original Note: Absent due to fall Deandre called this am states he feel and hurt his left leg. Plans to stay home today and hopefully return on Thursday.
== END 2021-07-01 18:45 | disposition home or self-care (01) ==
LOC: ANHCPREHAB 09:45
PROVIDERS: PCP Physician Assistant; Visit Provider Internal Medicine Cardiovascular Disease
DX: Z95.1 Presence of aortocoronary bypass graft (principal)
CPT/HCPCS: 93798

== ENCOUNTER 2022-05-02 09:30 | Outpatient (RCR) | payer MEDICARE, SELFPAY ==
--- NOTE | 2022-03-06 10:38 | PTOPEVAL ---
Thank you for referring Deandre Lebron to [facility].? The patient is scheduled to be seen for therapy?2 x/week for 8 weeks. Please review, sign, date and return this plan of care ALEJANDRO. I agree with and certify that the following plan of care is medically necessary. Referring Physician Date Attending Provider: Mihaela Jorge MD Evaluation Information Problem Diagnosis chronic back pain Onset 20 yr Additional Evaluation Detail When he was working he was reaching for a ladder and felt a pop in his back. He received multiple shots in his back with decreased response each time. 5 TEODORO with increased time required to perform. Subjective Information He has a walker and cane. He Query Text:As Reported By Patient/ will use the walker for longer Family walking distances. He does not perform any type of HEP or fitness program. 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 He c/ o increased pain and stiffness after working in the yard. He has learned to limit his activities to avoid increased pain. He is limited with walking, standing, traveling, lifting. He has had LOB since his nerve ablation ~2018. He has a internal pain unit he uses PRN. Previous Treatments Previous Treatments For This Problem 1 yr ago Pain Assessment Self Report Pain Assessment Lower Back Reported Pain Level 8 Pain Description Numbness Pain Frequency Chronic Lowest Pain Intensity 5 Greatest Pain Intensity 10 Pain Aggravating Factors Bending,Exercise/Activity, Lifting,Prolonged Position, Walking,Weight Bearing/ Standing Cervical and Lumbar ROM Lumbar Comments seated trunk rotation 25% with pain unable to perform standing flex/ext due to fear of falling seated trunk flex:lower leg painful Cervical and Lumbar Muscle Testing Lumbar Strength Upper Abdominal Strength 3 Fair
--- NOTE | 2022-04-10 16:01 | PCPTNOTE ---
Patient called & cancelled scheduled appointment this date due to trying to get into see his physician.
--- NOTE | 2022-04-29 11:13 | PCPTNOTE ---
Patient did not show up for scheduled appointment this date. Called and spoke with Pt. He apologized for missing his appointment, he thought his appointment was on Thursday04/30/22. Pt confirmed he would be at his Re-eval on Thursday05/02/22 @ 9:30.
--- NOTE | 2022-05-02 10:22 | PTOPEVAL ---
PHYSICAL THERAPY DISCHARGE REPORT 05-02-22 Refer to the clinical summary below for his status today, compared to the initial evaluation. The goals were partially achieved. He will be discharged from PT at this time, and to continue with his HEP and increasing his activity level as tolerated. Thank you for referring Deandre Lebron to [facility].? Please review, sign, date and return this Discharge report ALEJANDRO. I agree with and certify that the following plan of care is medically necessary. Referring Physician Date Attending Provider: Mihaela Jorge MD Subjective Information Deandre reports: back was Query Text:As Reported By Patient/ doing better, but this morning Family hurts more--? due to rainy weather; balance is still off , but improved with not have to hold onto things as much as I used to; no falls; do the exercises when I think about them, have been walking around my car port take my time and walk a few minutes at a time; walk little, hold onto railing and rest, then walk some more; have a membership at the [facility] but have not been there; Pain Assessment Pain Scale Pain Scale Used Numeric (1 - 10) Self Report Pain Assessment Lower Back Reported Pain Level 6 Pain Frequency Chronic,Continuous Lowest Pain Intensity 1 Greatest Pain Intensity 8 Pain Aggravating Factors Exercise/Activity Other Pain Aggravating Factors quick movements;reported tolerance standing/walk activity 10 min Additional Pain Score Comments Oswestry self assessment functional score of 50% limitation in activity level Interventions Used Interventions Used By Clinicians Education,Exercise Pain Relief Interventions Used By Heat,Inactivity/Rest, Patient Medication,Position Change Other Alleviating Interventions walk in tub; tylenol extra strength 2x/day Lumbar Comments standing trunk ROM: flexion- fingers to below knees- increase pain a little; extension only slight lumbar motion, bends his knees and thoracic motion; Gross Lower Extremity Strength functional strength testing: - supine SLR R 22/L 18 reps; bridge 20 reps - side lyi
== END 2022-05-05 08:38 | disposition home or self-care (01) ==
LOC: ANHPT 09:30
PROVIDERS: PCP Family Medicine; Visit Provider Family Medicine
DX: M47.816 Spondylosis without myelopathy or radiculopathy, lumbar region (principal); M47.27 Other spondylosis with radiculopathy, lumbosacral region
CPT/HCPCS: 97110; 97113; 97140; 97162; 97530

== ENCOUNTER → 2022-10-28 08:54 | Outpatient (CLI) | payer MEDICARE, SELFPAY ==
--- NOTE | ~2022-10-28 | XR_ITS ---
Lumbosacral Spine: AP and lateral views, with neutral, flexion, and extension positioning. Clinical History: Pain COMPARISON: 09/19/2019 Osseous alignment is stable from prior exam. No fractures or subluxation seen. Large anterior margina l osteophytes are present. Moderate degenerative disc narrowing is present at L2-L3, L3-L4, and L4-L5 . The sacroiliac joints are normally outlined. Spinal stimulator device again present. Impression: No change from prior exam. Stable degenerative changes, as detailed above. Reviewed, dictated and finalized at location [] OUT PRESS OPERATOR Impression: No change from prior exam. Stable degenerative changes, as detailed above.
--- NOTE | ~2022-10-28 | CT_ITS ---
Noncontrast CT scan of the lumbar spine CLINICAL HISTORY: Low back pain TECHNIQUE: Axial noncontrast imaging of the lumbar spine was performed. Sagittal and coronal reconstr ucted images were performed. Dose reduction technique was used on this scan by utilizing automated ex posure control and iterative reconstruction technique. COMPARISON: 06/28/2020 FINDINGS: No acute fracture or subluxation. Osseous alignment is stable from prior exam. There is adv anced degenerative disc narrowing at L2-L3, L3-L4, and L4-L5. Stable large anterior marginal osteophy monica are present throughout the lumbar spine. At L1-L2, there is no definite disc bulge or herniation. No definite spinal canal stenosis. Suspected mild right neural foraminal narrowing. Left neural foramen relatively well preserved. At L2-L3, there is probable disc bulge and facet joint/ligamentum flavum hypertrophy, contributing to bilateral moderate thecal sac compression/spinal canal stenosis. There is moderate bilateral neural foraminal narrowing. At L3-L4, there is disc bulge and ligamentum flavum/facet joint hypertrophy. There is probable modera te to severe thecal sac compression. There is moderate to severe bilateral neural foraminal narrowing . At L4-L5, disc bulge and mild facet arthropathy are present. There is probable moderate thecal sac co mpression. There is severe bilateral neural foraminal compromise. At L5-S1, there is no definite disc bulge or herniation. Facet joint arthropathy is present. No spina l canal stenosis present. There is severe bilateral neural foraminal narrowing. Paravertebral soft tissues are unremarkable. Neurostimulator device is present, unchanged. IMPRESSION: Moderate to severe degenerative spondylosis, essentially unchanged from prior exam. There is probable at least moderate, if not severe, thecal sac compression at L3-L4 and L4-L5. Multilevel neural ja inal narrowing is present. Please see details above. Neurostimulator device. Reviewed, dictated and finalized at location [] [facility] IMPRESSION: Moderate to severe degenerative spondylosis, essentially unchanged from prior e xam. There is probable at least moderate, if not severe, thecal sac compression at L3-L4 and L4-L5. Multilevel neural foraminal narrowing is present. Please s ee details above. Neurostimulator device.
== END ==
PROVIDERS: PCP Family Medicine
DX: M47.26 Other spondylosis with radiculopathy, lumbar region (principal)
CPT/HCPCS: 72110; 72131

== ENCOUNTER 2023-09-16 02:50 | Outpatient (CLI) | payer MEDICARE, SELFPAY ==
[2023-09-09 13:32] VITALS: BMI 39.2
--- NOTE | 2023-09-09 13:32 | PC.NURSE ---
Pre Radiology instructions Report to the outpatient steven bolivar on date _09/16/23____ at time _0700 for procedure Time: _0900___ YOU MAY BE MONITORED AT HOSPITAL FOR UP TO 4 HOURS AFTER YOUR PROCEDURE. A visitor will be allowed to accompany the patient into the hospital. You and your visitor will be asked to self-screen and do not enter if you have any COVID symptoms. A mask is OPTIONAL within the hospital. Patients are to have no food or drink 6 hours prior to procedure time (0300 AM) Driving will be restricted after the procedure, you must have a person to drive you home. Labs will be drawn in preop area and once reviewed, you will be taken to radiology area for procedure. When the procedure is completed, you will be taken to outpatient where you will be monitored for several hours. You may have one visitor in this area. Other than holding anti-coagulants, patient may take other medication(s) as scheduled. Prior to your appointment date patients are instructed to hold anti-coagulants after discussing with ordering provider to stop. If unable to discontinue anti-coagulants please notify radiologist. ? No aspirin or warfarin (Coumadin) for 7 days prior to the procedure. ? No clopidogrel (Plavix), ticagrelor (Brilinta), prasugrel (Effient) or dabigatran (Pradaxa) for 5 days prior to the procedure. ? No rivaroxaban (Xarelto), apixaban (Eliquis), dipyridamole (Aggrenox or Persantine) or cilostazol (Pletal) for 2 days prior to the procedure. Medications to discontinue per physician: __PLAVIX Date to take last dose: __09/10/23 Please leave all valuables, including medications, at home the day of procedure. The hospital will not accept responsibility for valuables. Wear comfortable, loose fitting clothing.? Follow any additional instructions given to you from ordering provider. Telephone instructions given to ____PT and asked if any additional questions and then verbalized understanding. Patient advised to call scheduling provider office or registration scheduling [phone] if any additional questions.
[2023-09-16] VITALS (14 sets, daily range): BP systolic 168–204; BP diastolic 97–121; PULSE 76–100; RESP 16–20; TEMP 36.8; O2SAT 96–99
--- NOTE | ~2023-09-16 | XR_ITS ---
EXAMINATION: XR_MY2+_CR DATE: 09/16/2023 12:10 INDICATION: Back pain and balance problems TECHNIQUE: The procedure including the risks and benefits was discussed with the patient. Risks discu ssed included spinal headache, cerebrospinal fluid leak, bleeding, check reaction and infection. The patient understood the risks and agreed to proceed. The patient had been previously premedicated for a reported mild contrast allergy. A timeout was performed to verify the patient's name, date of bir th, and procedure to be performed. The skin overlying the L3-L4 and L4-L5 levels was prepped and brunilda ped in usual sterile fashion. Subcutaneous 1% lidocaine was used for local anesthesia. A 22 gauge s pedro pablo needle was advanced under fluoroscopic guidance through the right L4 L5 intralaminar space util izing fluoroscopic guidance as well as crosstable lateral radiographs. Needle advancement was halted when the patient described radicular pain with electrical sensation extending down the right leg. Thi s location the needle tip projected over the intrathecal space on both the AP and lateral images. The re was however no efflux of CSF fluid despite Valsalva with the head of bed elevated 20 degrees. Jennifer ral attempts were made to reposition the needle tip, each terminate at the onset of radicular symptom s and yielded no CSF. Test injection of 0.5 mL of Omnipaque 300 contrast demonstrated epidural locati on of the contrast. At this point the procedure was terminated with no further injection of contrast. The needle was removed and the entry site was cleaned and dressed. There were no immediate complica tions. Fluoroscopy exposure time was 1.4 minutes. A total of 8 crosstable lateral radiographs and 4 f luoroscopic images were obtained. Total DAP was 124.368 Gycm^2 FINDINGS: Real-time fluoroscopy demonstrates the needle with minimal amount of the injected contrast in the epidural space on the right at the level of L4-L5 via intralaminar approach. Further advanceme nt was precluded by recurrent radicular symptoms with needle advancement suggesting likely severe dalton nosis at this level. On review of prior CT imaging, an interspinous process and left interlaminar migue spivey at the level of L4-L5 are precluded by osseous fusion across the lamina and spinous processes. The intrathecal sac appears to terminates at the level of L5-S1 which is unlikely to represent a suit able target for intrathecal access. There appears be a similar severe stenosis at L3-L4 with the post erior approach complicated by the presence of overlying spinal stimulator leads which subsequently ex tend through the bilateral L2-L3 intralaminar spaces. There is no prior MRI imaging to assess for the position of the conus which would limit attempts at intrathecal access at the more cephalad levels. IMPRESSION: 1. Unsuccessful attempt at fluoroscopic guided intrathecal access for a planned CT myelogram. Reviewed, dictated and finalized at location A.
[2023-09-16 08:05] LABS: Mean Platelet Volume 10.4 fl (7.4-10.4); Platelet Count Result 267 k/mm3 (150-375)
[2023-09-16 08:21] LABS: Prothrombin Time 13.7 Seconds (11.1-14.7)
[2023-09-16] MEDS: ACETAMINOPHEN 500 MG TABLET 1000 MG PO (12:40)
[2023-09-16] MEDS: METOPROLOL SUCCINATE EXT REL 12.5 MG TABCR PO (12:40)
== END 2023-09-16 14:10 | disposition home or self-care (01) ==
PROVIDERS: PCP Family Medicine; Visit Provider Radiology Diagnostic Radiology
DX: Z01.818 Encounter for other preprocedural examination (principal); M48.061 Spinal stenosis, lumbar region without neurogenic claudication; R26.89 Other abnormalities of gait and mobility; M54.50 Low back pain, unspecified
CPT/HCPCS: 36415; 62305; 85049; 85610; A9270; Q9967

== ENCOUNTER 2024-01-20 16:34 | Emergency (ER) | payer MEDICARE, SELFPAY ==
--- NOTE | 2024-01-20 16:44 | ED.RECABL ---
HPI - Recheck/Abnormal Lab/Rx General Chief Complaint: Recheck/Abnormal Lab/Rx Stated Complaint: problem with hgb level sent by pcp Time Seen by Provider: 01/20/24 16:45 Focused HPI: This is a 73 year old male that presents to the ER for abnormal outpatient blood work. Reports he was getting pre-op blood work and his PCP called and told him his hemoglobin was low and he should go to the ER. No abnormal bleeding or history of anemia. GENERAL: Well-appearing, well-nourished, and in no acute distress. HEAD: Normocephalic, atraumatic. CHEST: Clear to auscultation. ?No respiratory distress. HEART: Regular rate and rhythm.? NEURO: ?Alert and oriented x3. Patient screened in triage and initial orders placed.? ?Additional care and disposition to be based upon?diagnostic testing and treatment. Related Data Home Medications Medication Instructions Recorded Confirmed lisinopril 20 mg tablet 20 mg PO QAM 03/06/21 01/26/24 potassium chloride 20 mEq 20 meq PO .QOD 03/06/21 01/26/24 tablet,extended release rosuvastatin 40 mg tablet 40 mg PO DAILY 03/06/21 01/26/24 clopidogrel 75 mg tablet 75 mg PO DAILY 05/06/21 01/26/24 furosemide 40 mg tablet 40 mg PO EVERY OTHER DAY 05/06/21 01/26/24 acetaminophen 500 mg capsule 1,000 mg PO BID 08/14/23 01/26/24 Allergies Allergy/AdvReac Type Severity Reaction Status Date / Time Contrast Media AdvReac Unknown ITCHING, Uncoded 01/26/24 09:40 POSSIBLE HIVES Review of Systems Review of Systems: CONSTITUTIONAL: Denies fever RESPIRATORY: Denies dyspnea. GASTROINTESTINAL: Denies diarrhea. NEUROLOGIC: Denies weakness. All systems reviewed & are unremarkable except as noted in HPI and below PMFSH Past Medical History Medical History Absence of pulse of left foot Arthritis BMI 40.0-44.9, adult CAD in [place] artery Chronic toe pain, left foot DJD (degenerative joint disease) of knee Edema Elevated fasting glucose Encounter for screening for malignant neoplasm of prostate Erectile dysfunction Gout Hypertension Left knee DJD Lumbosacral spondylosis with radiculopathy Mixed hyperlipidemia Obstructive sleep apnea (~04/2021) Prediabetes Primary hypertension Primary hypertension Swelling of first metatarsophalangeal (MTP) joint of left foot Umbilical hernia Wears glasses Surgical History Surgical History History of arthroscopic knee surgery History of total hip arthroplasty S/P CABG x 3 Family History Family History Father Family history of malignant neoplasm Mother Hypertension Diabetes mellitus Sibling Hypertension Grandparent Malignant neoplasm of prostate Sibling Malignant neoplasm of prostate Unknown Hypertension Diabetes mellitus Arthritis Cerebrovascular accident High cholesterol Social History Social History Smoking status: Former smoker (Quit > 4 years) Tobacco type: e-cigarettes/vaping Smokeless tobacco user: other Second hand tobacco smoke exposure: No Smoking end date: 04/16/19 Additional smoking assessment comments: Pt uses e-cig daily Alcohol intake: current Drinks per week: 10 Substance use: never Substance use type: does not use Other substance usage details: CBD oil BID Lack of Transportation: No Lack of Food: Never True Current Housing: I Have Housing Concerned About Future Housing: No Difficulty Paying Gas/Electric Bills: No Difficulty Paying for Meds: No Currently Unemployed: No Education: Associate Degree Difficulty w/ Childcare or Family Care: No Living arrangements: with friend(s) Occupation/Education: retired Gender identity (if verbalized by the patient): Male Sexual Orientation (if Verbalized by the Patient): Straight or Heteros
[2024-01-20 17:16] LABS: Basophils Percent Auto 0.7 % (0.2-1.2); Eosinophils Absolute Auto 0.1 K/mm3 (0-0.3); Eosinophils Percent Auto 2.9 % (0-4.4); Hemoglobin 7.2 g/dL (14.0-18.0); Immature Granulocyte Absolute 0.01 K/mm3 (0.00-0.031); Immature Granulocyte Percent A 0.2 % (0-0.5); Lymphocytes Absolute Auto 1.93 K/mm3 (0.9-3.2); Lymphocytes Percent Auto 43.5 % (18.3-44.2); Mean Corpuscular HGB Conc 28.8 g/dl (32-36); Mean Corpuscular Hemoglobin 25.8 pg (26-34); Mean Corpuscular Volume 89.6 fl (80-100); Mean Platelet Volume 10.5 fl (7.4-10.4); Monocytes Absolute Auto 0.6 K/mm3 (0.1-0.6); Neutrophils Absolute Auto 1.7 K/mm3 (1.3-6.7); Neutrophils Percent Auto 38.7 % (45.5-73.1); Nucleated Red Blood Cells Perc 0.9 % (0.0-0.2); Platelet Count Result 176 k/mm3 (150-375); Red Blood Count 2.79 M/mm3 (4.6-6.20); Red Cell Distribution Width 17.2 % (11.5-14.5); White Blood Count 4.4 K/mm3 (4.5-10.0)
[2024-01-20 17:19] LABS: INR 1.1; Prothrombin Time 14.8 Seconds (11.1-14.7)
[2024-01-20 17:20] LABS: Partial Thromboplastin Time 27.7 SECONDS (22.3-36.8)
[2024-01-20 17:34] LABS: Alanine Aminotransferase 17 U/L (6-50); Albumin Level 3.9 g/dL (3.5-5.1); Alkaline Phosphatase 76 U/L (38-126); Anion Gap 6 mmol/L (8-16); Aspartate Amino Transferase 24 U/L (17-59); Bilirubin,Total 0.6 mg/dL (0.2-1.3); Blood Urea Nitrogen 13 mg/dL (9-20); Calcium 8.7 mg/dL (8.4-10.2); Carbon Dioxide 22 mmol/L (22-30); Chloride 113 mmol/L (98-107); Estimated CRCL calculation 105 ml/min; Estimated Glomerular Filt Rate > 60; Glucose 100 mg/dL (65-110); Potassium 3.7 mmol/L (3.4-5.0); Sodium 141 mmol/L (137-145)
[2024-01-20 17:48] LABS: Platelet Estimate Adequate (Adequate)
[2024-01-20 17:49] LABS: Schistocytes None Seen (NORMAL)
[2024-01-20 17:50] LABS: Hypochromasia 1+ (NORMAL)
[2024-01-20 17:51] LABS: Anisocytosis 2+ (NORMAL)
[2024-01-21 00:16] VITALS: BP 196/91; PULSE 67; RESP 18; O2SAT 100
--- NOTE | 2024-01-21 00:27 | ED.RECABL ---
HPI - Recheck/Abnormal Lab/Rx General Chief Complaint: Recheck/Abnormal Lab/Rx Stated Complaint: problem with hgb level sent by pcp Time Seen by Provider: 01/20/24 16:45 History of Present Illness HPI narrative: 73-year-old male presents to the emergency department for a low hemoglobin. Patient states he was getting labs drawn at [facility] yesterday for preop testing. He was called by his PCP advised to go to the ER for a hemoglobin of 7. Patient states he feels great. He denies lightheadedness, syncope, headache, chest pain, vision changes, focal numbness or weakness, shortness of breath, abdominal pain, melena or hematochezia. His no prior history of blood transfusions. States his last colonoscopy was about 15-20 years ago and showed polyps. He had a FIT test done by his PCP 10 years ago which was normal. Patient has no complaints. Related Data Home Medications Medication Instructions Recorded Confirmed lisinopril 20 mg tablet 20 mg PO QAM 03/06/21 11/03/23 potassium chloride 20 mEq 20 meq PO .QOD 03/06/21 11/03/23 tablet,extended release rosuvastatin 40 mg tablet 40 mg PO DAILY 03/06/21 11/03/23 clopidogrel 75 mg tablet 75 mg PO DAILY 05/06/21 11/03/23 furosemide 40 mg tablet 40 mg PO EVERY OTHER DAY 05/06/21 11/03/23 acetaminophen 500 mg capsule 1,000 mg PO BID 08/14/23 11/03/23 Allergies Allergy/AdvReac Type Severity Reaction Status Date / Time Contrast Media AdvReac Unknown ITCHING, Uncoded 11/03/23 11:18 POSSIBLE HIVES Review of Systems Review of Systems: CONSTITUTIONAL: Denies fever, chills, or sweats. EYES: Denies visual changes, redness, or discharge. ENT: Denies rhinorrhea, congestion, sore throat, or otalgia. CARDIOVASCULAR: Denies chest pain, palpitations, or edema. RESPIRATORY: Denies cough or dyspnea. GASTROINTESTINAL: Denies abdominal pain, nausea, vomiting, or diarrhea. GENITOURINARY: Denies dysuria or hematuria. SKIN: Denies rash or itching. MUSCULOSKELETAL: Denies back pain, joint pain, or myalgia. NEUROLOGIC: Denies headache, numbness, or weakness. PSYCHIATRIC: Denies anxiety or depression. [facility] Past Medical History Medical History Absence of pulse of left foot Arthritis BMI 40.0-44.9, adult CAD in the [place] artery Chronic toe pain, left foot DJD (degenerative joint disease) of knee Edema Elevated fasting glucose Encounter for screening for malignant neoplasm of prostate Erectile dysfunction Gout Hypertension Left knee DJD Lumbosacral spondylosis with radiculopathy Mixed hyperlipidemia Obstructive sleep apnea (~04/2021) Prediabetes Primary hypertension Primary hypertension Swelling of first metatarsophalangeal (MTP) joint of left foot Umbilical hernia Wears glasses Surgical History Surgical History History of arthroscopic knee surgery History of total hip arthroplasty S/P CABG x 3 Family History Family History Father Family history of malignant neoplasm Mother Hypertension Diabetes mellitus Sibling Hypertension Grandparent Malignant neoplasm of prostate Sibling Malignant neoplasm of prostate Unknown Hypertension Diabetes mellitus Arthritis Cerebrovascular accident High cholesterol Social History Social History Smoking status: Former smoker (Quit > 4 years) Tobacco type: e-cigarettes/vaping Smokeless tobacco user: other Second hand tobacco smoke exposure: No Smoking end date: 04/16/19 Additional smoking assessment comments: Pt uses e-cig daily Alcohol intake: current Drinks per week: 10 Substance use: never Substance use type: does not use Other substance usage details: CBD oil BID Lack of Transportation: No Lack of Food: Never True Current Housing: I Have Housing Concerned About Future Housin
[2024-01-21 00:36] VITALS: TEMP 36.7
== END 2024-01-21 01:10 | disposition home or self-care (01) ==
PROVIDERS: Physician Assistant; Emergency Provider Physician Assistant; PCP Family Medicine
DX: D64.9 Anemia, unspecified (principal); I25.10 Atherosclerotic heart disease of native coronary artery without angina pectoris; I10 Essential (primary) hypertension; M17.12 Unilateral primary osteoarthritis, left knee; M10.9 Gout, unspecified; M47.26 Other spondylosis with radiculopathy, lumbar region; Z96.649 Presence of unspecified artificial hip joint; Z95.1 Presence of aortocoronary bypass graft; F17.290 Nicotine dependence, other tobacco product, uncomplicated
CPT/HCPCS: 36415; 80053; 85025; 85610; 85730; 86850; 86900; 86901; 99283

== ENCOUNTER 2024-02-04 09:57 | Outpatient (CLI) | payer MEDICARE, SELFPAY ==
[2024-02-04 10:22] LABS: Hemoglobin 8.4 g/dL (14.0-18.0); Mean Corpuscular Hemoglobin 24.6 pg (26-34); Mean Corpuscular Volume 87.7 fl (80-100); Mean Platelet Volume 10.2 fl (7.4-10.4); Platelet Count Result 299 k/mm3 (150-375); Red Blood Count 3.42 M/mm3 (4.6-6.20); Red Cell Distribution Width 20.3 % (11.5-14.5)
[2024-02-04 10:26] LABS: Appearance Urine Clear (Clear); Bacteria Urine None Seen /hpf; Bilirubin Urine Negative (Negative); Blood Urine Negative (Negative); Color Urine Yellow (Yellow); Glucose Urine UA Negative (Negative); Ketones Urine Negative (Negative); Leukocyte Esterase Ur Negative LEU/UL (Negative); Nitrate Urine Negative (Negative); Non Pathogenic Casts 0-2; Protein Urine 1+ mg/dL (Negative); RBC Urine 0-2 /hpf (0-2); Squamous Epithelial Cell Urine None Seen /hpf (Few); Urobilinogen Urine 0.2 mg/dL (<2.0); WBC Urine 0-5 /hpf (0-3); pH Urine 5.5 (5.0-9.0)
[2024-02-04 10:37] LABS: Add Urine Microscopic? YES
== END 2024-02-04 09:58 | disposition home or self-care (01) ==
LOC: ANHLAB 09:59
PROVIDERS: PCP Family Medicine; Visit Provider Nurse Practitioner
DX: D50.9 Iron deficiency anemia, unspecified (principal); R06.02 Shortness of breath; R82.998 Other abnormal findings in urine; I25.10 Atherosclerotic heart disease of native coronary artery without angina pectoris
CPT/HCPCS: 36415; 85027

== ENCOUNTER 2024-03-21 00:36 | Day surgery (SDC) | payer MEDICARE, SELFPAY ==
[2024-03-09 12:13] VITALS: BMI 39.9
[2024-03-21 06:46] VITALS: BP 190/99; PULSE 76; RESP 18; TEMP 36.2; O2SAT 96
[2024-03-21] MEDS: LACTATED RINGERS 1,000 ML 150 ML IV CONT (07:06)
--- NOTE | 2024-03-21 07:42 | PM.HPGS ---
History of Present Illness History of Present Illness Consent: Risks, benefits, and alternatives have been discussed and questions answered. Patient agrees to proceed with procedure. Chief complaint: CESAR, Pers. Hx. colon polyps Narrative: Deandre Lebron is a 73 year old male with colon polyp in 2013, recently with CESAR but no overt gib, never had EGD. He takes plavix Review of Systems Review of Systems: All systems reviewed & are unremarkable except as noted in HPI and below PMFSH Past Medical History Medical History Absence of pulse of left foot Arthritis BMI 40.0-44.9, adult CAD in [place] artery Chronic toe pain, left foot DJD (degenerative joint disease) of knee Edema Elevated fasting glucose Encounter for screening for malignant neoplasm of prostate Erectile dysfunction Gout Hypertension Left knee DJD Lumbosacral spondylosis with radiculopathy Mixed hyperlipidemia Obstructive sleep apnea (~04/2021) Prediabetes Primary hypertension Primary hypertension Swelling of first metatarsophalangeal (MTP) joint of left foot Umbilical hernia Wears glasses Surgical History Surgical History History of arthroscopic knee surgery History of total hip arthroplasty S/P CABG x 3 Family History Family History Father Family history of malignant neoplasm Mother Hypertension Diabetes mellitus Sibling Hypertension Grandparent Malignant neoplasm of prostate Sibling Malignant neoplasm of prostate Unknown Hypertension Diabetes mellitus Arthritis Cerebrovascular accident High cholesterol Social History Social History Smoking status: Former smoker Tobacco type: e-cigarettes/vaping Smokeless tobacco user: other Second hand tobacco smoke exposure: No Smoking end date: 04/16/19 Additional smoking assessment comments: Pt uses e-cig daily Alcohol intake: current Drinks per week: 10 Alcohol use details: 1-2 drinks a week Substance use: never Substance use type: other Other substance usage details: cbd gummies Lack of Transportation: No Lack of Food: Never True Current Housing: I Have Housing Concerned About Future Housing: No Difficulty Paying Gas/Electric Bills: No Difficulty Paying for Meds: No Currently Unemployed: No Education: Associate Degree Difficulty w/ Childcare or Family Care: No Living arrangements: with family Occupation/Education: retired Gender identity (if verbalized by the patient): Male Sexual Orientation (if Verbalized by the Patient): Straight or Heterosexual Spiritual care concerns: No Agree to blood products: Yes Meds Home Medications and Allergies Home Medications Medication Instructions Recorded Confirmed Type lisinopril 20 mg tablet 20 mg PO QAM 03/06/21 03/09/24 History rosuvastatin 40 mg tablet 40 mg PO DAILY 03/06/21 03/09/24 History clopidogrel 75 mg tablet 75 mg PO DAILY 05/06/21 03/09/24 History acetaminophen 500 mg capsule 1,000 mg PO BID 08/14/23 03/09/24 History metoprolol succinate 25 mg 12.5 mg PO BID #100 tabs 08/28/23 03/09/24 Rx tablet,extended release 24 hr rsv vaccine #1 ea 11/03/23 01/26/24 Rx tadalafil 20 mg tablet (Cialis) 20 mg PO DAILY PRN sexual activity 12/29/23 03/09/24 Rx #10 tabs hydrocodone 5 mg-acetaminophen 325 1 tablet PO Q8H PRN pain #30 tabs 02/04/24 03/21/24 Rx mg tablet ferrous sulfate 325 mg (65 mg 325 mg PO DAILY #30 tabs 02/23/24 03/09/24 Rx iron) tablet tamsulosin 0.4 mg capsule 0.4 mg PO DAILY #90 caps 03/09/24 03/09/24 Rx Allergies Allergy/AdvReac Type Severity Reaction Status Date / Time Contrast Media AdvReac Unknown ITCHING, Uncoded 03/21/24 06:44 POSSIBLE HIVES Vital Signs Vital Signs - 24 hr 03/21/24 06:46 Temperature 97.2 F L Pulse Rate
--- NOTE | 2024-03-21 07:43 | P.PNAN_ITS ---
Anes - Initial Pre Proc Eval Procedure: Operation Date: 03/21/24 08:00 Proposed Procedures p Esophagogastroduodenoscopy & Colonoscopy - King Chavez MD Date/Time: 03/21/24 07:43 Surgeon: King Chavez MD Pre Op Diagnosis: CESAR, Pers. Hx. colon polyps Patient Data Age: 73 Gender: M Height: 1.75 m Weight: 118.9 kg Last Vital Signs Temp 97.2 F L 03/21/24 06:46 Pulse 76 03/21/24 06:46 Resp 18 03/21/24 06:46 BP 190/99 H 03/21/24 06:46 Pulse Ox 96 03/21/24 06:46 O2 Del Method Room Air 03/21/24 06:46 Allergies Allergy/AdvReac Type Severity Reaction Status Date / Time Contrast Media AdvReac Unknown ITCHING, Uncoded 03/21/24 06:44 POSSIBLE HIVES Home Medications Medication Instructions Recorded Confirmed Type lisinopril 20 mg tablet 20 mg PO QAM 03/06/21 03/09/24 History rosuvastatin 40 mg tablet 40 mg PO DAILY 03/06/21 03/09/24 History clopidogrel 75 mg tablet 75 mg PO DAILY 05/06/21 03/09/24 History acetaminophen 500 mg capsule 1,000 mg PO BID 08/14/23 03/09/24 History metoprolol succinate 25 mg 12.5 mg PO BID #100 tabs 08/28/23 03/09/24 Rx tablet,extended release 24 hr rsv vaccine #1 ea 11/03/23 01/26/24 Rx tadalafil 20 mg tablet (Cialis) 20 mg PO DAILY PRN sexual activity 12/29/23 03/09/24 Rx #10 tabs hydrocodone 5 mg-acetaminophen 325 1 tablet PO Q8H PRN pain #30 tabs 02/04/24 03/21/24 Rx mg tablet ferrous sulfate 325 mg (65 mg 325 mg PO DAILY #30 tabs 02/23/24 03/09/24 Rx iron) tablet tamsulosin 0.4 mg capsule 0.4 mg PO DAILY #90 caps 03/09/24 03/09/24 Rx Patient hx anesthesia problems: none Family hx anesthesia problems: none Results Review: All pre-operative results and documents have been reviewed as part of the pre- operative evaluation. [facility] Past Medical History Medical History Absence of pulse of left foot Arthritis BMI 40.0-44.9, adult CAD in [place] artery Chronic toe pain, left foot DJD (degenerative joint disease) of knee Edema Elevated fasting glucose Encounter for screening for malignant neoplasm of prostate Erectile dysfunction Gout Hypertension Left knee DJD Lumbosacral spondylosis with radiculopathy Mixed hyperlipidemia Obstructive sleep apnea (~04/2021) Prediabetes Primary hypertension Primary hypertension Swelling of first metatarsophalangeal (MTP) joint of left foot Umbilical hernia Wears glasses Surgical History Surgical History History of arthroscopic knee surgery History of total hip arthroplasty S/P CABG x 3 Family History Family History Father Family history of malignant neoplasm Mother Hypertension Diabetes mellitus Sibling Hypertension Grandparent Malignant neoplasm of prostate Sibling Malignant neoplasm of prostate Unknown Hypertension Diabetes mellitus Arthritis Cerebrovascular accident High cholesterol Social History Social History Smoking status: Former smoker Tobacco type: e-cigarett
--- NOTE | 2024-03-21 07:47 | P.PNAN_ITS ---
Anes - Eval Final PreProcedure Day of Procedure 03/21/24 07:47 Patient weight: morbidly obese Heart: regular rate and rhythm Lungs: decreased breath sounds Airway: Mallampati scale class II Neurological: alert and oriented Last oral intake: >/= 8 hours ASA classification: III Emergent: no Anesthetic plan: proceed Anesthesia type and monitoring: general GIVS and standard monitoring Results Review: All pre-operative results and documents have been reviewed as part of the pre- operative evaluation. Informed Consent: The patient's anesthetic plan and its attendant risks and benefits were discussed with the patient/family/POA. Questions were solicited and answers provided to the satisfaction of the patient/family/POA.
--- NOTE | 2024-03-21 08:02 | SUR.OPER ---
EGD ended at 0755, colon began at 0800
[2024-03-21 08:11] VITALS: BP 120/66; PULSE 66; RESP 17; O2SAT 98
[2024-03-21 08:21] VITALS: BP 132/70; PULSE 60; RESP 30; O2SAT 98
[2024-03-21 08:31] VITALS: BP 147/78; PULSE 61; RESP 20; O2SAT 100
== END 2024-03-21 08:40 | disposition home or self-care (01) ==
PROVIDERS: PCP Family Medicine; Referring Provider Nurse Practitioner; Visit Provider Internal Medicine Gastroenterology
PROC: 0DJ08ZZ Inspection of Upper Intestinal Tract, Via Natural or Artificial Opening Endoscopic (ICD-10-PCS; CPT 43235; principal; 2024-03-21 08:00)
DX: D50.9 Iron deficiency anemia, unspecified (principal); D12.3 Benign neoplasm of transverse colon; K64.8 Other hemorrhoids; K57.30 Diverticulosis of large intestine without perforation or abscess without bleeding; I10 Essential (primary) hypertension; E78.2 Mixed hyperlipidemia; R73.03 Prediabetes; I25.10 Atherosclerotic heart disease of native coronary artery without angina pectoris; G89.29 Other chronic pain; M79.675 Pain in left toe(s); N52.9 Male erectile dysfunction, unspecified; M17.12 Unilateral primary osteoarthritis, left knee; G47.33 Obstructive sleep apnea (adult) (pediatric); E66.01 Morbid (severe) obesity due to excess calories; Z68.38 Body mass index [BMI] 38.0-38.9, adult; Z79.891 Long term (current) use of opiate analgesic; Z79.02 Long term (current) use of antithrombotics/antiplatelets; Z98.890 Other specified postprocedural states; Z95.1 Presence of aortocoronary bypass graft; Z87.891 Personal history of nicotine dependence; Z86.010 Personal history of colon polyps; Z80.42 Family history of malignant neoplasm of prostate; Z82.49 Family history of ischemic heart disease and other diseases of the circulatory system
CPT/HCPCS: 43239; 45385; 88305; J2704; J7120

== ENCOUNTER 2024-12-26 16:32 | Outpatient (CLI) | payer MEDICARE, SELFPAY ==
--- NOTE | ~2024-12-26 | XR_ITS ---
Left Knee Technique: AP, lateral, and sunrise views were obtained. Clinical History: Pain Findings: No fracture or dislocation is seen. Osseous alignment is anatomic. Moderate tricompartmenta l degenerative changes present. There is mild medial compartment narrowing. Soft tissues are unremark able. No joint effusion is seen. Impression: Moderate tricompartmental degenerative change, as above. Reviewed, dictated and finalized at location . Impression: Moderate tricompartmental degenerative change, as above.
--- NOTE | ~2024-12-26 | XR_ITS ---
Left Knee Technique: AP, lateral, and sunrise views were obtained. Clinical History: Pain Findings: No fracture or dislocation is seen. Osseous alignment is anatomic. There is mild to moderat e degenerative spurring at the medial lateral joint lines.. Soft tissues are unremarkable. No joint e ffusion is seen. Impression: Degenerative change, as above. Reviewed, dictated and finalized at location M. [facility]ONE Impression: Degenerative change, as above.
--- OUTSIDE RECORDS SUMMARY | 2024-12-26 16:35 | XMS_ITS | Clinical Summary ---
Author Organization [facility] Address [address] [place] [address] Care Team Providers Care Internet Marketing Strategist Name Role Phone Unavailable Primary Care Provider Unavailabl e Allergies No known active allergies Medications No known medications Active Problems No known active problems Social History Tobacco Use Types Packs/Day Years Used Date Smoking Tobacco: Never Assessed Sex and Gender Information Value Date Recorded Sex Assigned at Not on file Legal Sex Male 9:34 PM CDT Gender Identity Not on file Sexual Orientation Not on file Plan of Treatment Health Maintenance Due Date Last Done Comments Hepatitis C Virus (HCV) Screening 1950 Cologuard 2001 Immunochemical Fecal Occult Blood 2001 Zoster Immunization (1 of 2) 2001 Pneumococcal Immunization (5 0+ years) (2 of 2 - PCV) 05/02/2017 05/02/2016 Colonoscopy 06/28/2024 06/28/2014 Colorectal Cancer Screening 06/28/2024 Influenza Immunization (#1) 07/17/202408/18, 08/29/2019, 08/19/2016 SARS-COV-2 Immunization ( - 2023- season) 2024 11/01/2021, 02/06/2021, 01/09/2021 Respiratory Syncytial Virus (RSV) Immunization (Adult) (1 - 1-dose 75+ series) 2026 06/28/2014 DTaP/Tdap/Td Immunization Discontinued 2013, 11/16/2002 TdaP Immunization Completed 05/08/2014 Pneumococcal Immunization Combined Discontinued 05/02/2016 Hepatitis B Immunization Aged Out No longer eligible based on patient's age to complete this topic Meningococcal Immunization (ACWY) Aged Out No longer eligible based on patient's age to complete this topic Rotavirus Immunization Aged Out No lo nger eligible based on patient's age to complete this topic Procedures Procedure Name Priority Date/Time Associated Diagnosis Comments COLONOSCOPY Routine 06/28/2014 from Last 3 Months or Most Recently Relevant to Health Maintenance Results * COLONOSCOPY (06/28/2014) Fermín Espinal MD PROCEDURE/MINOR SURGICAL ORD[place]aw[place] L[place] Final Result from Last 3 Months or Most Recently Relevant to Health Maintenance
[2024-12-26 17:51] LABS: Influenza A QL RT-PCR Negative (Negative); Influenza B QL RT-PCR Negative (Negative); RSV RNA, RT-PCR Negative (Negative); SARS-CoV-2 RNA PCR Negative (Negative)
== END 2024-12-26 16:33 | disposition home or self-care (01) ==
PROVIDERS: PCP Family Medicine; Visit Provider Family Medicine
DX: J06.9 Acute upper respiratory infection, unspecified (principal); M17.0 Bilateral primary osteoarthritis of knee
CPT/HCPCS: 73564; 87637